=== PATIENT | female | born 1985 | race African-American/Black ===

== ENCOUNTER 2016-11-03 08:19 | Emergency (ER) | payer OTHER ==
[~2016-11-03] VITALS: Ht 167.6 cm; Wt 100.0 kg
[~2016-11-03 08:19] MED LIST: KALETRA 200/501 TAB PO; TRUVADA1 TABLET PO
[2016-11-03 10:41] LABS: CHLORIDE 102 mEq/L (99-109); POTASSIUM 3.4 mEq/L (3.7-5.4); SODIUM 141 mEq/L (136-147)
[2016-11-03 10:43] LABS: GLUCOSE 82 mg/dL (70-99)
[2016-11-03 10:44] LABS: ANION GAP 14 MEQ/L (2-14)
[2016-11-03 10:46] LABS: GFR ESTIMATE (CALCULATED) > 59 mL/min/
[2016-11-03 10:47] LABS: UREA NITROGEN (BUN) 10 mg/dL (9-23)
[2016-11-03 10:58] LABS: QUANTITATIVE HCG < 4.0 MIU/ML
[2016-11-03] MEDS ORDERED: PERCOCET 5/31 TABLET PO (12:28)
[2016-11-03] MEDS ORDERED: MOTRIN800 MG PO (12:28)
[2016-11-03] MEDS ORDERED: MEDROL DOSEPAK4 MG PO (12:28)
[2016-11-03] MEDS ORDERED: VALIUM5 MG PO (12:28)
[2016-11-03] MEDS ORDERED: LIDODERM 5% P1 PATCH TD (12:28)
[2016-11-03 12:36] VITALS: BP 123/89
== END 2016-11-03 12:45 | disposition home or self-care (01) ==
LOC: EME 08:19
PROVIDERS: Emergency Medicine
DX: M54.42 Lumbago with sciatica, left side (principal)
CPT/HCPCS: 80048; 84702; 99281; 99284; J1100; J1885; J7040